=== PATIENT | male | born 1975 | race Caucasian/White ===

== ENCOUNTER 2017-08-25 04:38 | Emergency (ER) | payer MEDICAID, OTHER ==
[~2017-08-25] VITALS: Ht 182.9 cm; Wt 76.2 kg
[~2017-08-25 04:38] MED LIST: BUPR300T52 PO; CLON2TAB PO; LEVE500T9 PO
--- NOTE | 2017-08-25 05:00 | NUR ---
OBSERVED PATIENT PICKING ON HIS ARM WOUND, CASING THEM TO START BLEEDING. CLEANSED WITH BETADINE AND NS, PATIENT STATES THAT HE WANTS TO HURT HIMSELF. SECURITY CALLED AND OBSERVING PATIENT AT BEDSIDE. PATIENT WAS EVALUATED BY DR. KENNEDY AND MEDICATION WERE ORDERED. REMOVED PATIENT'S CLOTHING AND PLACED IN HOSPITAL GOWN FOR SAFETY.
[2017-08-25] MEDS ORDERED: OLANZAPINE 10 MG VIAL IM ONE ×2 (05:15→05:26)
[2017-08-25] MEDS ORDERED: LORAZEPAM 2 MG/1 ML VIAL IM ONE (05:15)
[2017-08-25] MEDS ORDERED: diphenhydrAMINE 50 MG/1 ML VIAL IM ONE (05:15)
--- NOTE | 2017-08-25 05:18 | NUR ---
Patient given IM medication as ordered by ERMMeredith. Patient did not list medication as allergy when asked by ERMD. When given, patient asked what he was being given and was informed that it was "Zyprexa." Patient immediately began yelling out "I can't get Zyprexa, my doctor doesn't want me to get it" and accused the staff of "force medicating" him. Patient was asked what happens when he takes "Zyprexa" to which he responded that he gets dizzy and that "it gives my mom diabetes!" Patient educated regarding the danger he posed to himself as staff observed that he had scratched his skin open in the room and patient was informed that he would be placed on an psychiatric ER hold until he could be evaluated by SOAKING PITS SUPERVISOR. ERMMeredith/[employer] notified.
[2017-08-25] MEDS ORDERED: diphenhydrAMINE 50 MG/1 ML VIAL ONE (05:34)
[2017-08-25] MEDS ORDERED: LORAZEPAM 2 MG/1 ML VIAL ONE (05:34)
[2017-08-25] MEDS ORDERED: ACETAMINOPHEN 325 MG TABLET PO ONE (06:00)
[2017-08-25] MEDS ORDERED: ACETAMINOPHEN 325 MG TABLET ONE (06:03)
[2017-08-25 06:38] LABS: BASOPHILS % (AUTO) 0.6 % (0.0-2.0); EOSINOPHILS # (AUTO) 0.3 K/uL (0.0-0.7); EOSINOPHILS % (AUTO) 4.8 % (0.0-7.0); LYMPHOCYTES # (AUTO) 1.8 K/uL (20.0-40.0); LYMPHOCYTES % (AUTO) 30.4 % (20.5-51.5); MEAN CORPUSCULAR HEMOGLOBIN 19.9 uug (23.8-33.4); MEAN CORPUSCULAR HGB CONC 31 g/dL (32.5-36.3); MEAN CORPUSCULAR VOLUME 64.1 fL (73.0-96.2); MONOCYTES # (AUTO) 0.5 K/uL (2.0-10.0); MONOCYTES % (AUTO) 7.8 % (0.0-11.0); NEUTROPHILS # (AUTO) 3.4 K/uL (1.8-8.9); NEUTROPHILS % (AUTO) 56.4 % (38.5-71.5); PLATELET COUNT (AUTO) 314 K/uL (152-348); RED BLOOD CELL COUNT(AUTO) 4.05 MIL/uL (4.06-5.63)
[2017-08-25 06:39] LABS: *BILIRUBIN,URIN NEGATIVE (NEGATIVE); *BLOOD, URINE NEGATIVE (NEGATIVE); *CLARITY,URINE CLEAR (CLEAR); *COLOR,URINE YELLOW (YELLOW); *KETONES,URINE NEGATIVE (NEGATIVE); *PROTEIN,URINE NEGATIVE (NEGATIVE); *UROBILINOGEN,URINE 0.2 E.U./dl (NORMAL); LEUKOCYTE ESTERASE ,URINE NEGATIVE (NEGATIVE); NITRITE, URINE NEGATIVE (NEGATIVE); PH,URINE 5.5 (5.0-8.0); UGLUCOSE NEGATIVE (NEGATIVE)
[2017-08-25 06:56] LABS: CARBON DIOXIDE 26 mmol/L (21-32); CHLORIDE 104 mmol/L (98-107); CREATININE 0.7 mg/dL (0.6-1.3); GLUCOSE 112 mg/dL (74-106); POTASSIUM 3.4 mmol/L (3.5-5.1); UREA NITROGEN, BLOOD 10 mg/dL (7-18)
[2017-08-25 07:02] LABS: ALANINE AMINOTRANSFERASE 126 U/L (16-63); ALKALINE PHOSPHATASE 91 U/L (50-136); ASPARTATE AMINOTRANSFERASE 74 U/L (15-37); BILIRUBIN,DIRECT 0.1 mg/dL (0.0-0.2); BILIRUBIN,TOTAL 0.2 mg/dL (0.2-1.0); TOTAL PROTEIN, SERUM 7.5 g/dL (6.4-8.2)
[2017-08-25 07:03] LABS: BACTERIA,URINE NONE SEEN /HPF (NONE SEEN); RBC,URINE NONE SEEN /HPF (0-3)
[2017-08-25 07:04] LABS: CALCIUM OXALATE CRYSTALS,UR MANY /HPF (NONE SEEN); SQUAMOUS EPITHELIAL CELL,UR NONE SEEN /HPF (NONE SEEN); WBC,URINE 0-3 /HPF (0-3)
--- NOTE | 2017-08-25 07:05 | NUR ---
Recieved pt in bed w/ both eyes closed, 1 to 1 at the bedside.
[2017-08-25 07:11] LABS: ETHANOL < 3 MG/DL (0-0)
--- NOTE | 2017-08-25 07:44 | NUR ---
Dr Man medically cleared the pt. Valentin Patel from PET called for Psych eval. ETA 1 1/2 hours.
--- NOTE | 2017-08-25 07:47 | NUR ---
Pt is awake but drowsy used the urinal. No c/o pain, cooperative at this time.
[2017-08-25 08:01] LABS: *AMPHETAMINE, URINE POSITIVE (NEGATIVE); *BARBITURATE, URINE NEGATIVE (NEGATIVE); *CANNABINOID, URINE NEGATIVE (NEGATIVE); *COCCAINE, URINE NEGATIVE (NEGATIVE); *OPIATE, URINE NEGATIVE (NEGATIVE); *PHENCYCLIDINE SCREEN,URINE NEGATIVE (NEGATIVE)
--- NOTE | 2017-08-25 08:30 | NUR ---
Provided breakfast, pt has good appetite. States suecidal ideation but has no plans.
--- NOTE | 2017-08-25 09:59 | NUR ---
Valentin Patel at the bedside for psych eval.
--- NOTE | 2017-08-25 10:30 | NUR ---
PER JUVE WICK PT WILL FOLLOW W/ HIS OWN PSYCH MD. JACKY PANDYA PROVIDED.
--- NOTE | 2017-08-25 10:30 | NUR ---
Patient discharged to in stable conditon. Written and verbal after care instructions given. Patient verbalizes understanding of instructions. PT LEFT ER W/ STEADY GAIT.
[2017-08-25 10:32] VITALS: BP 113/77
[2017-08-25 11:21] LABS: EOSINOPHILS % (MANUAL) 4 % (0-8); LYMPHOCYTES % (MANUAL) 32 % (20-40); MONOCYTES % (MANUAL) 4 % (2-10); NEUTROPHILS % (MANUAL) 60 % (42-75)
[2017-08-25 13:09] LABS: ACETAMINOPHEN < 2.0 ug/mL (10-30)
== END 2017-08-25 10:33 | disposition home or self-care (01) ==
LOC: ER 04:43
DX: F20.9 Schizophrenia, unspecified (principal); R45.851 Suicidal ideations; L98.499 Non-pressure chronic ulcer of skin of other sites with unspecified severity; Z59.0 Homelessness; G40.909 Epilepsy, unspecified, not intractable, without status epilepticus
CPT/HCPCS: 36415; 80307; 85025; G0480; G0480-TC; J1200; J2060; J2358

== ENCOUNTER 2017-10-30 05:07 | Emergency (ER) | payer MEDICAID, OTHER ==
[~2017-10-30] VITALS: Ht 182.9 cm; Wt 86.2 kg
[~2017-10-30 05:07] MED LIST changes: -BUPR300T52 PO
--- NOTE | 2017-10-30 05:25 | NUR ---
Requesting 1:1 sitter for safety, none available per Nursing [facility] Director.
[2017-10-30 06:12] LABS: ETHANOL < 3 MG/DL (0-0)
[2017-10-30 06:18] LABS: *AMPHETAMINE, URINE POSITIVE (NEGATIVE); *BARBITURATE, URINE NEGATIVE (NEGATIVE); *CANNABINOID, URINE NEGATIVE (NEGATIVE); *COCCAINE, URINE NEGATIVE (NEGATIVE); *OPIATE, URINE NEGATIVE (NEGATIVE); *PHENCYCLIDINE SCREEN,URINE NEGATIVE (NEGATIVE)
--- NOTE | 2017-10-30 06:23 | NUR ---
Call placed to Jerald Flores ([facility]) for PET Evaluation, he recommended to give patient Zyprexa and re-evaluate after medication's effect. SALOMED notified.
[2017-10-30] MEDS ORDERED: diphenhydrAMINE 50 MG CAPSULE ONE (06:27)
[2017-10-30] MEDS ORDERED: diphenhydrAMINE 50 MG CAPSULE PO ONE (06:30)
--- NOTE | 2017-10-30 06:30 | NUR ---
Call placed to Jerald Flores ([facility]) for PET evaluation. ERMD states to have the patient interviewed prior to giving any medication. Art Capilla notified.
[2017-10-30] MEDS ORDERED: LORAZEPAM 1 MG TABLET ONE (06:39)
[2017-10-30] MEDS ORDERED: LORAZEPAM 0.5 MG TABLET PO ONE (06:45)
--- NOTE | 2017-10-30 07:20 | NUR ---
Art is here speaking to the patient. breakfast ordered for patient.
[2017-10-30] MEDS ORDERED: OLANZAPINE 5 MG TABLET PO ONE (07:30)
[2017-10-30] MEDS ORDERED: OLANZAPINE 5 MG TABLET ONE (07:31)
[2017-10-30 07:42] LABS: BASOPHILS % (AUTO) 0.6 % (0.0-2.0); EOSINOPHILS # (AUTO) 0.2 K/uL (0.0-0.7); EOSINOPHILS % (AUTO) 3.4 % (0.0-7.0); HEMATOCRIT 26.6 % (36.7-47.1); HEMOGLOBIN 8.4 g/dL (12.5-16.3); LYMPHOCYTES # (AUTO) 1.7 K/uL (20.0-40.0); LYMPHOCYTES % (AUTO) 24.2 % (20.5-51.5); MEAN CORPUSCULAR HEMOGLOBIN 19.8 uug (23.8-33.4); MEAN CORPUSCULAR HGB CONC 32 g/dL (32.5-36.3); MEAN CORPUSCULAR VOLUME 62.4 fL (73.0-96.2); MONOCYTES # (AUTO) 1.1 K/uL (2.0-10.0); NEUTROPHILS % (AUTO) 56.8 % (38.5-71.5); PLATELET COUNT (AUTO) 468 K/uL (152-348); RED BLOOD CELL COUNT(AUTO) 4.25 MIL/uL (4.06-5.63); WHITE BLOOD COUNT (AUTO) 7.1 K/uL (3.6-10.2)
--- NOTE | 2017-10-30 07:44 | NUR ---
Patient is agitated. He is looking for his phone and cant find it. I gave him his 2 bags to look through and he could not find his phone. Security Norm is here. I gave Zyperxa as ordered and he swallowed it.
[2017-10-30 07:51] LABS: CREATININE 0.8 mg/dL (0.6-1.3); POTASSIUM 3.3 mmol/L (3.5-5.1)
[2017-10-30 07:57] LABS: BILIRUBIN,TOTAL 0.4 mg/dL (0.2-1.0)
--- NOTE | 2017-10-30 08:00 | NUR ---
Per nursing supervisor intelligence analyst the security brady in no longer able to observe the patient 1:1 do to short staffing and there is no sitter available at this time.
[2017-10-30] MEDS ORDERED: POTASSIUM BICARBONATE/CIT AC 25 MEQ TABLET.EFF PO ONE (08:15)
[2017-10-30] MEDS ORDERED: POTASSIUM BICARBONATE/CIT AC 25 MEQ TABLET.EFF ONE (08:21)
--- NOTE | 2017-10-30 08:34 | NUR ---
sher spring RN to arrive for psych eval. patient is awake and alert. sitter at bedside.
[2017-10-30 09:12] LABS: BAND % (MANUAL) 1 % (0-10); EOSINOPHILS % (MANUAL) 3 % (0-8); LYMPHOCYTES % (MANUAL) 21 % (20-40); MONOCYTES % (MANUAL) 14 % (2-10); NEUTROPHILS % (MANUAL) 61 % (42-75)
--- NOTE | 2017-10-30 09:30 | NUR ---
PATIENT ATE ALL HIS BREAKFAST. SCOTTIE RN, PSYCH NURSE HERE SPEAKING TO PATIENT.
--- NOTE | 2017-10-30 10:01 | NUR ---
Psych nurse evaluated this patient and he is ready for discharge from ER. DC and follow up instructions given.
--- NOTE | 2017-10-30 10:32 | NUR ---
Patient will not leave ER and will not give a reason for ot leaving. He will not get up frpm the bed. He is awake and alert. I tried to talk to him and see if theres any issues or concerns he has but he wont answer my questions. Dr Valdovinos aware.
--- NOTE | 2017-10-30 11:05 | NUR ---
Patient still will not leave ER. I timothy tried to speak to him and see what the problem is but he will not talk to me. He did urinate all over the bed and he throw his food (which was left over from his breakfast all over the floor). I called security and they are at bedside now.
--- NOTE | 2017-10-30 11:16 | NUR ---
patient is getting dressed. He has his cell phone with him and he called someone to drive him home. He is ambulatopry with steady gait.
--- NOTE | 2017-10-30 11:21 | NUR ---
Patient discharged in stable conditon. Written and verbal after care instructions given. Patient verbalizes understanding of instructions.
[2017-10-30 11:22] VITALS: BP 128/79
== END 2017-10-30 11:23 | disposition home or self-care (01) ==
LOC: ER 05:12
DX: R45.851 Suicidal ideations (principal); F20.9 Schizophrenia, unspecified; F32.9 Major depressive disorder, single episode, unspecified; F41.9 Anxiety disorder, unspecified; Z59.0 Homelessness; Z88.8 Allergy status to other drugs, medicaments and biological substances; Z79.899 Other long term (current) drug therapy
CPT/HCPCS: 36415; 80053; 80307; 85025; 99284; A4663; G0480; Q0163

== ENCOUNTER 2018-05-09 03:21 | Emergency (ER) | payer SELFPAY ==
[~2018-05-09] VITALS: Ht 182.9 cm; Wt 80.7 kg
[2018-05-09 03:52] VITALS: BP 131/74
--- NOTE | 2018-05-09 03:52 | NUR ---
Patient discharged to home in stable conditon. Written and verbal after care instructions given. Patient verbalizes understanding of instructions.
== END 2018-05-09 03:55 | disposition home or self-care (01) ==
LOC: ER 03:26
DX: S51.801A Unspecified open wound of right forearm, initial encounter (principal); Z48.00 Encounter for change or removal of nonsurgical wound dressing; Z88.8 Allergy status to other drugs, medicaments and biological substances; Z59.0 Homelessness; X58.XXXA Exposure to other specified factors, initial encounter; Y93.89 Activity, other specified; Y92.89 Other specified places as the place of occurrence of the external cause; Y99.8 Other external cause status
CPT/HCPCS: A4663

== ENCOUNTER 2018-07-10 19:55 | Emergency (ER) | payer SELFPAY ==
[~2018-07-10] VITALS: Ht 180.3 cm; Wt 80.7 kg
[2018-07-10] MEDS ORDERED: buPROPion XL 150 MG TAB.SR.24H PO SCH (20:30)
[2018-07-10] MEDS ORDERED: ARIPIPRAZOLE 5 MG TABLET PO ONE (20:30)
[2018-07-10] MEDS ORDERED: CLONAZEPAM 0.5 MG TABLET PO ONE (20:30)
--- NOTE | 2018-07-10 20:54 | NUR ---
Patient discharged to home in stable conditon. Written and verbal after care instructions given. Patient verbalizes understanding of instructions.
[2018-07-10] MEDS ORDERED: ARIPIPRAZOLE 5 MG TABLET ONE (21:38)
[2018-07-10] MEDS ORDERED: CLONAZEPAM 1 MG TABLET ONE (21:38)
== END 2018-07-10 21:11 | disposition home or self-care (01) ==
LOC: ER 19:58
DX: L98.499 Non-pressure chronic ulcer of skin of other sites with unspecified severity (principal); F20.9 Schizophrenia, unspecified; F19.10 Other psychoactive substance abuse, uncomplicated; F32.9 Major depressive disorder, single episode, unspecified; Z76.0 Encounter for issue of repeat prescription; Z59.0 Homelessness; Z88.8 Allergy status to other drugs, medicaments and biological substances
CPT/HCPCS: A4663